=== PATIENT | female | born 1975 | race Caucasian/White ===

== ENCOUNTER 2021-12-12 19:38 | Outpatient (CLI) | payer SELFPAY | END 2021-12-12 19:39 | disposition left against medical advice (07) | LOC: EMS 19:38 | DX: R07.9 Chest pain, unspecified (principal) ==

== ENCOUNTER 2021-12-12 20:28 | Emergency (ER) | payer SELFPAY ==
[2021-12-12 21:24] LABS: BASOPHILS % (AUTO) 0.7 %; EOSINOPHILS # (AUTO) 0.1 10^3/uL (0.0-0.7); HCT - HEMATOCRIT 38.6 % (37.0-47.0); HGB - HEMOGLOBIN 12.5 g/dL (12.0-16.0); LYMPHOCYTES # (AUTO) 2.3 10^3/uL (1.5-3.5); LYMPHOCYTES % (AUTO) 41.2 %; MEAN CORPUSCULAR HEMOGLOBIN 27.6 pg (27.0-31.0); MEAN CORPUSCULAR HGB CONC 32.4 g/dL (32.0-36.0); MEAN CORPUSCULAR VOLUME 85.2 fL (81.0-99.0); MONOCYTES # (AUTO) 0.4 10^3/uL (0.0-1.0); MONOCYTES % (AUTO) 6.4 %; NEUTROPHILS # (AUTO) 2.7 10^3/uL (1.5-6.6); NEUTROPHILS % (AUTO) 49.5 %; PLT - PLATELET COUNT 275 10^3/uL (130-450); RED BLOOD COUNT 4.53 10^6/uL (4.20-5.40); RED CELL DISTRIBUTION WIDTH 12.9 % (12.0-15.0); WHITE BLOOD COUNT 5.5 x10^3/uL (4.8-10.8)
[2021-12-12 21:37] LABS: ALBUMIN 4.5 g/dL (3.2-5.5); ALBUMIN/GLOBULIN RATIO 1.7 (1.0-2.2); BILIRUBIN,TOTAL 0.2 mg/dL (0.2-1.0); CALCIUM 9.5 mg/dL (8.5-10.3); CREATININE 0.7 mg/dL (0.4-1.0); POTASSIUM 3.7 mmol/L (3.5-5.0); TOTAL PROTEIN 7.1 g/dL (6.7-8.2)
--- NOTE | 2021-12-12 22:31 | ED Physician Documentation ---
PD HPI CHEST PAIN - Stated complaint Stated Complaint: CHEST PX - Chief complaint Chief Complaint: Cardiac - History obtained from History obtained from: Patient - History of Present Illness Timing - onset: Enter time (19:40), Today Timing - onset during: Rest Timing - details: Abrupt onset Pain level max: 0 Pain level now: 4 Quality: Pain Location: Substernal, Left chest Improved by: Rest Worsened by: Other (no exacerbating factors) Associated symptoms: No: Shortness of air, Diaphoresis, Nausea, Vomiting, Feeling faint / dizzy, General Weakness, Palpitations, Cough Similar symptoms before: Has not had sx before Recently seen: Not recently seen - Additional information Additional information: tonight at approximately 7:40 PM while at rest eating ice cream, patient had midline and left chest pain lasting approximately 20-30 minutes. She presents asymptomatic. Has not had similar symptoms before. Denies dyspnea, diaphoresis, nausea. No known cardiac problems. Review of Systems Constitutional: denies: Sweats Cardiac: reports: Chest pain / pressure. denies: Palpitations, Pedal edema, Calf pain Respiratory: reports: Reviewed and negative GI: reports: Reviewed and negative Musculoskeletal: denies: Extremity swelling PD PAST MEDICAL HISTORY - Past Medical History Past Medical History: Yes Cardiovascular: High cholesterol - Present Medications Home Medications: Ambulatory Orders Medication Instructions Recorded Confirmed Atomoxetine HCl [Strattera] 65 mg PO 12/12/21 Cetirizine [ZyrTEC] 10 mg PO ONCE 12/12/21 12/12/21 Vortioxetine Hydrobromide 10 mg PO 12/12/21 [Brintellix] - Allergies Allergies/Adverse Reactions: Allergies Allergy/AdvReac Type Severity Reaction Status Date / Time No Known Drug Allergies Allergy Verified 12/12/21 20:51 - Living Situation Living Arrangement: reports: At home (visiting from [place]) PD ED PE NORMAL - Vitals Vital signs reviewed: Yes - General General: Alert and oriented X 3, No acute distress, Well developed/nourished - Neck Neck: Supple, no meningeal sign - Cardiac Cardiac: RRR, No murmur, No gallop, No rub - Respiratory Respiratory: No respiratory distress, Clear bilaterally - Abdomen Abdomen: Soft, Non tender - Derm Derm: Normal color, Warm and dry - Extremities Extremities: No edema Results - Vitals Vitals: Vital Signs - 24 hr 0712/12/21 12/12/21 20:43 22:31 23:07 Temperature 36.6 C 36.6 C Heart Rate 87 83 83 Respiratory 18 16 16 Rate Blood Pressure 128/70 118/80 118/80 O2 Saturation 100 100 100 Oxygen O2 Source Room air - EKG (time done) No standard instances Rate: Rate (enter#) (85) Rhythm: NSR [place]: Normal Intervals: Normal HI, Other (incomplete RBBB) QRS: Normal Ischemia: Normal ST segments Compare to prior EKG: Old EKG unavailable - Labs Labs: Laboratory Tests 12/12/21 12/12/21 12/12/21 21:08 21:08 21:08 WBC 5.5 RBC 4.53 Hgb 12.5 Hct 38.6 MCV 85.2 MCH 27.6 MCHC 32.4 RDW 12.9 Plt Count 275 MPV 10.0 Neut # (Auto) 2.7 Lymph # (Auto) 2.3 Parke # (Auto) 0.4 Eos # (Auto) 0.1 Baso # (Auto) 0.0 Absolute Nucleated RBC 0.00 Nucleated RBC % 0.0 Sodium 140 Potassium 3.7 Chloride 103 Carbon Dioxide 30 Anion Gap 7.0 BUN 18 Creatinine 0.7 Estimated GFR (MDRD) 89 Glucose 95 Calcium 9.5 Total Bilirubin 0.2 AST 26 ALT 36 Alkaline Phosphatase 83 Troponin I High Sens < 2.3 L Total Protein 7.1 Albumin 4.5 Globulin 2.6 Albumin/Globulin Ratio 1.7 Lipase 36 - Rads (name of study) chest xray Radiology: Prelim report reviewed, See rad report PD MEDICAL DECISION MAKING - ED course Complexity details: reviewed results, re-evaluated patient, considered differential, d/w patient ED course: no concerning findings on cardiac-oriented testing including EKG (incomplete RBBB noted, but no ST changes nor q waves), chest xray, blood tests including hs-cTn. Results reviewed with patient. She is asymptomatic during ED stay. I advised her to follow up with PMD as more testing might be needed such as a stress test. Return precautions discussed. Departure - Departure Disposition: Home, Self Care Clinical Impression: Chest pain Qualifiers: Chest pain type: unspecified Qualified Code(s): R07.9 - Chest pain, unspecified Instructions: ED Chest Pain Atypical Unkn Cause Comments: The results of tonight's tests are unremarkable. There are no concerning findings on the EKG, chest xray, or blood tests (including a cardiac blood tests (high-sensitivity troponin)). While this is reassuring, you might need other tests such as a stress test, at the discretion of your primary care provider. You should follow up with your primary care provider , next available appointment, even if your symptoms do not reoccur. Discharge Date/Time: 12/12/21 23:07
[2021-12-12 22:32] VITALS: BP 118/80
--- NOTE | 2021-12-12 23:46 | XRAY Report ---
PROCEDURE: Chest 1 View X-Ray INDICATIONS: Chest pain TECHNIQUE: One view of the chest was acquired. COMPARISON: None. FINDINGS: Surgical changes and devices: None. Lungs and pleura: No pleural effusions or pneumothorax. Lungs are clear. Mediastinum: Mediastinal contours appear normal. Heart size is normal. Bones and chest wall: No suspicious bony lesions. Overlying soft tissues appear unremarkable. IMPRESSION: 1. No acute cardiopulmonary disease. Reviewed by: Brock Mae MD on 12/12/2021 11:44 PM PDT Approved by: Brock Mae MD on 12/12/2021 11:44 PM PDT Station ID: [id number]
== END 2021-12-12 23:07 | disposition home or self-care (01) ==
LOC: ED 20:28
DX: R07.9 Chest pain, unspecified (principal)
CPT/HCPCS: 36415; 80053; 83690; 84484; 85025; 93005; 99284